=== PATIENT | male | born 1980 | race Caucasian/White ===

== ENCOUNTER 2016-11-03 08:21 | Emergency (ER) | payer BC ==
[2016-11-03 08:40] VITALS: BP 128/68
--- NOTE | 2016-11-03 08:53 | UC ---
Respiratory Complaint HPI - HPI Summary HPI Summary: The patient comes in today for: 1. Coughing, fatigue: Onset: ONe month Palliative/provocative: NOthing makes his symptoms better or worse. Zyrtec did not help. Quality: Harsh Region: Upper respiratory. Severity: 0/10 Time: Cough lasts a few seconds. Associated symptoms: Chest pain: None. Dyspnea: NOne at this time. But, with exertion he gets "out of breath faster." Body aches with some at lower rib margins bilaterally. Rhinitis: clear to "little green." Cough: When he coughs it can be clear to green. Fevers: None. Sinus pressure: None. Wheezing: None Inhalers use in past: Last winter. * - History of Current Complaint Chief Complaint: UCRespiratory Stated Complaint: UPPER RESPIRATORY Time Seen by Provider: 11/03/16 08:44 Hx Obtained From: Patient - Allergies/Home Medications Allergies/Adverse Reactions: Allergies Allergy/AdvReac Type Severity Reaction Status Date / Time Cefaclor [From Ceclor] Allergy Unknown Unknown Verified 11/03/16 08:35 Reaction Details Sulfamethoxazole Allergy Unknown Unknown Verified 11/03/16 08:35 w/Trimethoprim Reaction [From Bactrim] Details Home Medications: Home Medications Atorvastatin* [Lipitor 20 MG*] 20 mg PO DAILY 11/03/16 [History Confirmed ] Cetirizine* [ZyrTEC 10 MG TAB*] 10 mg PO DAILY 11/03/16 [History Confirmed 11/03] Lisinopril/HCTZ 20/12.5(NF) [Zestoretic 20/12.5(NF)] 1 tab PO DAILY 11/03/16 [ History Confirmed 11/03/16] Metoprolol Tartrate TAB* [Lopressor TAB*] 25 mg PO BID 11/03/16 [History Confirmed 11/03/16] PMH/Surg Hx/FS Hx/Imm Hx Previously Healthy: Yes Endocrine History: Dyslipidemia Cardiovascular History: Hypertension - Surgical History Surgical History: Yes Surgery Procedure, Year, and Place: C5 C6 Discectomy, 08/2016, [place]; [place] Ear Tubes, 2015, [place]; Bilateral Carpal Tunnel Realease, 2014 2015; Ear Tubes as a child - Family History Known Family History: Positive: Hypertension Negative: Cardiac Disease, Diabetes Family History: noncontributory - Social History Occupation: Employed Full-time Alcohol Use: Rare Substance Use Type: None Smoking Status (MU): Never Smoked Tobacco Household Exposure Type: Cigarettes - Immunization History Most Recent Influenza Vaccination: Not the 2015/2016 Season Most Recent Tetanus Shot: OVER FIVE YEARS Review of Systems Constitutional: Negative Skin: Negative Eyes: Negative ENT: Nasal Discharge Respiratory: Cough Gastrointestinal: Negative Genitourinary: Negative All Other Systems Reviewed And Are Negative: Yes Physical Exam Triage Information Reviewed: Yes Appearance: Well-Appearing, No Pain Distress, Well-Nourished Vital Signs: Initial Vital Signs Temp 98.4 F 11/03/16 08:26 Pulse 68 11/03/16 08:26 Resp 18 11/03/16 08:26 BP 128/68 11/03/16 08:26 Pulse Ox 100 11/03/16 08:26 Vital Signs Reviewed: Yes Eyes: Positive: Conjunctiva Clear. Negative: Discharge ENT: Positive: Hearing grossly normal, Other: - Both ears have blue pe tubes in place.. Negative: Pharyngeal erythema, Nasal congestion, Nasal drainage, TM bulging, TM dull, TM red, Tonsillar swelling, Tonsillar exudate Dental: Negative: Gross Decay/Caries @, Dental Fracture @ Neck: Positive: Supple, Nontender, No Lymphadenopathy. Negative: Nuchal Rigidity Respiratory: Positive: Lungs clear, No respiratory distress, No accessory muscle use. Negative: Rhonchi, Wheezing Cardiovascular: Positive: RRR, No Murmur Abdomen Description: Positive: Nontender, No Organomegaly, Soft. Negative: Distended, Guarding Musculoskeletal: Positive: Strength Intact, ROM Intact Neurological: Positive: Alert, Muscle Tone Normal Psychological: Positive: Age Appropriate Behavior, Consolable Skin: Negative: rashes, breakdown UC Diagnostic Evaluation - Laboratory O2 Sat by Pulse Oximetry: 100 Respiratory Course/Dx - Course Course Of Treatment: Patient was told that I'll be treating his cough as a sinusitis, and recommended that he see his primary care provider in 1-2 weeks to see how he is doing. He was told that there are many causes for a chronic cough. And if his treatment for a sinus infection does not really help, he should be assessed for other conditions. - Differential Dx/Diagnosis Provider Diagnoses: Sinusitis. Bronchitis Discharge - Discharge Plan Condition: Stable Disposition: HOME Patient Education Materials: Sinusitis (ED), Chronic Cough (ED) Referrals: Simon Post MD [Primary Care Provider] - 1 Week (Please see your primary care provider in about one to two weeks to see how well you are doing. If you get worse, please be seen sooner.)
== END 2016-11-03 09:12 | disposition home or self-care (01) ==
LOC: UCCORT 08:21
DX: J32.9 Chronic sinusitis, unspecified (principal); J40 Bronchitis, not specified as acute or chronic; E78.5 Hyperlipidemia, unspecified; I10 Essential (primary) hypertension
CPT/HCPCS: 93005; 99212; G0463